=== PATIENT | male | born 1985 | race African-American/Black ===

== ENCOUNTER 2016-12-23 09:07 | Emergency (ER) | payer OTHER ==
[~2016-12-23] VITALS: Ht 162.6 cm; Wt 57.2 kg
[2016-12-23 09:27] VITALS: BP 133/75
--- NOTE | 2016-12-23 09:33 | NUR ---
PT AMBULATED TO BED 5
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
--- NOTE | 2016-12-23 10:04 | NUR ---
DR. JACK PRESENT AT BEDSIDE.
[2016-12-23] MEDS ORDERED: KETOROLAC 60 MG/2 ML VIAL IM ONE (10:10)
[2016-12-23 11:05] VITALS: BP 140/90
== END 2016-12-23 11:06 | disposition home or self-care (01) ==
LOC: MED 09:07
DX: G89.29 Other chronic pain (principal); M79.605 Pain in left leg
CPT/HCPCS: 96372; 99283; J1885